=== PATIENT | male | born 1970 | race Caucasian/White ===

== ENCOUNTER 2017-11-06 11:58 | Outpatient (CLI) | payer BC ==
--- NOTE | 2017-11-06 14:15 | XRAY Report ---
Reason: PRIMARY GENERALIZED (OSTEO)ARTHRITIS Procedure Date: 11/06/2017 Accession Number: [id number] / [id number] Procedure: XR - Hand 3 View BILAT CPT Code: FULL RESULT: EXAMS: 1. Right Hand Radiography 2. Left Hand Radiography EXAM DATE: 11/06/2017 12:30 PM. CLINICAL HISTORY: PRIMARY GENERALIZED (OSTEO)ARTHRITIS. COMPARISON: None. TECHNIQUE: 3 views each hand. FINDINGS: Right: Bones: No fracture or bone lesion. 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 No erosions. No periarticular osteopenia. Soft Tissues: Unremarkable. Left: Bones: No fracture or bone lesion. 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 No erosions. No periarticular osteopenia. Soft Tissues: Unremarkable. IMPRESSION: 1. No acute osseous abnormality. 2. Mild DJD. RADIA
== END 2017-11-06 11:59 | disposition home or self-care (01) ==
LOC: DI 11:58
PROVIDERS: ATTEND Specialist
DX: M15.0 Primary generalized (osteo)arthritis (principal)